=== PATIENT | male | born 1955 | race Caucasian/White ===

== ENCOUNTER 2016-10-21 08:11 | Emergency (ER) | payer SELFPAY ==
--- NOTE | 2016-10-21 12:08 | Emergency Department Report ---
ED General Adult HPI - General Chief complaint: Headache Stated complaint: HEADACHE Time Seen by Provider: 10/21/16 11:56 Source: patient Mode of arrival: Ambulatory Limitations: No Limitations - History of Present Illness Initial comments: Patient was sent to this facility from [facility] for evaluation of headache of 5 days' duration. Apparently he was admitted there after a brief psychotic episode. I did note that he had a positive amphetamine screen in the urine. He was downgraded to a voluntary status but is still an inpatient. The patient is not interested in receiving any further care here. He is not having an active headache. He denies any focal neurological change. He states he is able to walk. He is oriented and alert. The patient tells me that he has [employer] and he is not in network. -: days(s) Location: head Radiation: non-radiation Quality: other (did not describe) Consistency: intermittent Improves with: none Worsens with: none - Related Data Allergies Allergy/AdvReac Type Severity Reaction Status Date / Time codeine Allergy Unknown Verified 10/21/16 09:21 ED Review of Systems ROS: Stated complaint: HEADACHE Other details as noted in HPI Comment: Unobtainable due to pts medical conditions (but patient denies fever chills neck pain photophobia focal neurological change. He is attempting to sign out AMA.) ED Past Medical Hx - Past Medical History Hx Hypertension: Yes Hx CVA: Yes Hx GERD: Yes Hx of Cancer: Yes (ESOPHAGEAL) Hx Headaches / Migraines: Yes Hx Seizures: Yes (X 1 - CHILD) Hx Psychiatric Treatment: Yes (UNSPECIFIED -) Hx COPD: Yes Hx Dementia: Yes Additional medical history: CAD. HYPERLIPIDEMIA. GOUT. SLEEP APNEA / CPAP MACHINE. CHRONIC BACK PAIN - Surgical History Additional Surgical History: BACK SURGERY L4-L5. NECK SURGERY. ESOPHAGECTOMY. TONSILLECTOMY - Social History Smoking Status: Current Every Day Smoker Substance Use Type: Alcohol, Prescribed ED Physical Exam - General Limitations: No Limitations General appearance: alert, in no apparent distress - Head Head exam: Present: atraumatic, normocephalic - Eye Eye exam: Present: normal appearance. Absent: scleral icterus - ENT ENT exam: Present: normal exam, mucous membranes moist - Neck Neck exam: Present: normal inspection. Absent: tenderness, meningismus - Respiratory Respiratory exam: Present: normal lung sounds bilaterally. Absent: respiratory distress - Cardiovascular Cardiovascular Exam: Present: regular rate, normal rhythm. Absent: systolic murmur, diastolic murmur, rubs, gallop - GI/Abdominal GI/Abdominal exam: Present: soft, normal bowel sounds. Absent: distended, tenderness, guarding, rebound - Rectal Rectal exam: Present: deferred - Extremities Exam Extremities exam: Present: normal inspection - Back Exam Back exam: Present: normal inspection - Neurological Exam Neurological exam: Present: alert, oriented X3, CN II-XII intact. Absent: motor sensory deficit - Psychiatric Psychiatric exam: Present: anxious, flat affect - Skin Skin exam: Present: warm, dry, intact, normal color. Absent: rash ED Course Vital Signs 10/21/16 10/21/16 09:22 10:46 Temperature 98.4 F 98.1 F Pulse Rate 84 80 Respiratory 18 16 Rate Blood Pressure 117/81 Blood Pressure 129/78 [Right] O2 Sat by Pulse 100 100 Oximetry - Reevaluation(s) Reevaluation #1: The patient's friend is at the bedside. She states that she is going to bring him back to [facility] to sign out. The patient states that he wants to go to [facility] now for evaluation. He is awake alert and oriented 4. He is apparently mentally competent. He will be allowed to sign out AGAINST MEDICAL ADVICE. 10/21/16 12:06 Critical care attestation.: If time is entered above; I have spent that time in minutes in the direct care of this critically ill patient, excluding procedure time. ED Disposition Clinical Impression: Headache Qualifiers: Headache type: unspecified Headache chronicity pattern: chronic headache Intractability: not intractable Qualified Code(s): R51 - Headache Disposition: -07 LEFT AGAINST MED ADVICE Is pt being admited?: No Does the pt Need Aspirin: No Condition: Stable Referrals: PRIMARY CARE, [Primary Care Provider] - 3-5 Days Forms: AMA Form Time of Disposition: 12:07
[2016-10-21 12:13] VITALS: BP 115/80
== END 2016-10-21 12:14 | disposition left against medical advice (07) ==
LOC: ED 08:11
DX: R51 Headache (principal); I10 Essential (primary) hypertension; K21.9 Gastro-esophageal reflux disease without esophagitis; J44.9 Chronic obstructive pulmonary disease, unspecified; F03.90 Unspecified dementia, unspecified severity, without behavioral disturbance, psychotic disturbance, mood disturbance, and anxiety
CPT/HCPCS: 99283